=== PATIENT | male | born 1965 | race Caucasian/White ===

== ENCOUNTER 2016-11-11 18:53 | Emergency (ER) | payer OTHER ==
[~2016-11-11] VITALS: Ht 170.2 cm; Wt 90.0 kg
[~2016-11-11 18:53] MED LIST: AMLODIPINE BESYL5 MG PO; LOPRESSOR25 MG PO; TYLENOL REGULA325 MG PO; VITAMIN D2000 INTUN PO; ZOCOR20 MG PO
[2016-11-11 19:34] LABS: HEMATOCRIT 45.5 % (38.0-50.0); MCH 29.2 PG (29.0-34.0); MCHC 35.8 G/DL (30.0-36.0); MCV 81.4 FL (86-99); MEAN PLAT.VOLUME 9.1 uM^3 (9.0-12.4); PLATELET COUNT 304 K/uL (156-360); RBC DIS.WIDTH-SD 37.6 % (39-53); RED BLOOD COUNT 5.59 M/uL (4.00-5.50); WHITE BLOOD COUNT 15.3 K/uL (4.1-10.2)
[2016-11-11 19:43] LABS: CHLORIDE 102 mEq/L (99-109); POTASSIUM 3.5 mEq/L (3.7-5.4); SODIUM 137 mEq/L (136-147)
[2016-11-11 19:45] LABS: GLUCOSE 150 mg/dL (70-99)
[2016-11-11 19:47] LABS: ANION GAP 15 MEQ/L (2-14); TOTAL BILIRUBIN 0.8 mg/dL (0.0-1.0)
[2016-11-11 19:49] LABS: ALKALINE PHOSPHATASE 49 IU/L (3-129); GFR ESTIMATE (CALCULATED) > 59 mL/min/
[2016-11-11 19:50] LABS: UREA NITROGEN (BUN) 16 mg/dL (9-23)
[2016-11-11 19:52] LABS: LIPASE 16 U/L (1.0-51.0); PROTHROMBIN TIME 10.3 (9.2-11.2); PTT 26.8 (25-32)
[2016-11-11] MEDS ORDERED: PERCOCET 5/31 TABLET PO (20:56)
[2016-11-11] MEDS ORDERED: ULTRAM50 MG PO (20:56)
[2016-11-11 21:20] VITALS: BP 150/100
== END 2016-11-11 21:21 | disposition home or self-care (01) ==
LOC: EME 18:53
PROVIDERS: Emergency Medicine
DX: S22.42XA Multiple fractures of ribs, left side, initial encounter for closed fracture (principal); S90.32XA Contusion of left foot, initial encounter; S40.812A Abrasion of left upper arm, initial encounter; V28.0XXA Motorcycle driver injured in noncollision transport accident in nontraffic accident, initial encounter; Y92.488 Other paved roadways as the place of occurrence of the external cause; I10 Essential (primary) hypertension; E78.5 Hyperlipidemia, unspecified
CPT/HCPCS: 71260; 73610; 73630; 74177; 80053; 83690; 85027; 85610; 85730; 99281; 99285; J2405; J3010; J7030